=== PATIENT | female | born 1935 | race Caucasian/White ===

== ENCOUNTER 2016-05-23 13:22 | Emergency (ER) | payer MEDICARE, BC ==
--- NOTE | ~2016-05-23 | EKG ---
PATIENT: GUILLERMO LIMON UNIT #: [id number] Ventricular Rate: 61 BPM Atrial Rate: 61 BPM P-R Interval: 168 ms QRS Duration: 106 ms Q-T Interval: 508 ms QTC Calculation(Bezet): 511 ms P [place]: 11 degrees Calculated R [place]: -48 degrees Calculated T [place]: -10 degrees Diagnosis Line: Normal sinus rhythm Diagnosis Line: Left anterior fascicular block Diagnosis Line: Voltage criteria for left ventricular hypertrophy Diagnosis Line: Nonspecific ST and T wave abnormality Diagnosis Line: Prolonged QT Diagnosis Line: Abnormal ECG Diagnosis Line: When compared with ECG of 19-APR-2016 05:47, Diagnosis Line: Non-specific change in ST segment in Inferior Diagnosis Line: leads Diagnosis Line: T wave inversion now evident in Inferior leads Diagnosis Line: Confirmed by DEVANG BELLO MD ([id number]) on 05/24/2016 Diagnosis Line: 5:41:49 PM INTERPRETING MD: EUGENIA LANCE
--- NOTE | ~2016-05-23 | CR72 ---
[facility] A Service of [facility] RADIOLOGY TEXT RESULTS PATIENT: GUILLERMO LIMON LOCATION: [facility] : 33 UNIT #: [id number] AGE: [address]: Han Ramos MD SEX: F ORDER DR: [id number] [facility] [address] [place], [place] [address] [id number] MR#: [id number] Acc #: [id number] NAME: GUILLERMO LIMON : 1935 SEX: F STUDY DATE/TIME: 05/23/2016 14:01 UNIT: [facility] ROOM: STUDY DESCRIPTION: CR Chest Single View Portable Attending Physician: Han Ramos M.D. Ordering Physician: Han Ramos M.D. Primary Care Physician: Phil Guerrero M.D. MEDICAL IMAGING REPORT This report is preliminary unless electronic signature is present EXAM Portable chest. DATE OF EXAM 05/23/2016 INDICATIONS Weakness, shortness of air starting today, 05/23/2016. COMPARISON 04/23/2016 FINDINGS A portable view of the chest was obtained. There are low lung volumes and there appears to be right lower lobe atelectasis with band-like fibrosis or atelectasis in the right mid-lung. The left lung is clear. IMPRESSION Appearance of the chest is similar to the study from April with some right lower lobe atelectasis and band-like fibrosis or atelectasis in the right mid lung. The left lung is clear. Dictated by... Kimo Lawson M.D. THIS IS AN ELECTRONICALLY VERIFIED REPORT Kimo Lawson M.D. at 05/24/2016 6:04 AM ADRIAN/sandeep TD: 05/23/2016 17:30 JOB #: [id number] [facility] A Service of [facility] RADIOLOGY TEXT RESULTS PATIENT: GUILLERMO LIMON LOCATION: [facility] : 31 UNIT #: [id number] AGE: [address]: Han Ramos MD SEX: F ORDER DR: MEDICAL IMAGING REPORT COPY
--- NOTE | ~2016-05-23 | CT71 ---
[facility] A Service of [facility] RADIOLOGY TEXT RESULTS PATIENT: GUILLERMO LIMON LOCATION: [facility] : 33 UNIT #: [id number] AGE: [address]: Han Ramos MD SEX: F ORDER DR: [id number] [facility] [address] [place], [place] [address] [id number] MR#: [id number] Acc #: [id number] NAME: GUILLERMO LIMON. : 1935 SEX: F STUDY DATE/TIME: 05/23/2016 14:17 UNIT: [facility] ROOM: STUDY DESCRIPTION: CT Head Wo Contrast Attending Physician: Han Ramos M.D. Ordering Physician: Han Ramos M.D. Primary Care Physician: Phil Guerrero M.D. MEDICAL IMAGING REPORT This report is preliminary unless electronic signature is present EXAM CT head, noncontrast, 05/23/2016 HISTORY 81-year-old female in the ED complaining of 4-day history of generalized weakness and lethargy. TECHNIQUE CT examination of the head was performed without IV contrast. The CT exam was performed with one or more of the following radiation dose reduction techniques: automatic exposure control, adjustment of mA and/or kV according to patient size, and iterative reconstruction. FINDINGS No acute intracranial abnormality is demonstrated. Mild generalized cerebral cortical atrophy with slightly disproportionate enlargement of the ventricles. Advanced diffuse low-attenuation white matter changes, nonspecific but likely related to chronic small vessel disease. These changes are stable since the previous study of 04/19/2016. No evidence of intracranial hemorrhage, mass, mass effect, cerebral edema or progressive ventricular enlargement. Fluid levels in both maxillary sinuses. Metallic foreign body in the right orbit adjacent to the globe may be postoperative. IMPRESSION 1. No acute intracranial abnormality is demonstrated. 2. Stable diffuse chronic changes as detailed above. [facility] A Service of [facility] RADIOLOGY TEXT RESULTS PATIENT: GUILLERMO LIMON LOCATION: [facility] : 33 UNIT #: [id number] AGE: [address]: Han Ramos MD SEX: F ORDER DR: 3. Fluid within both maxillary sinuses may indicate acute sinusitis. 4. No change since 04/19/2016. Dictated by... Jeremias Hampton M.D. THIS IS AN ELECTRONICALLY VERIFIED REPORT Jeremias Hampton M.D. at 06/02/2016 6:02 AM MARILYN/derick TD: 05/23/2016 15:10 JOB #: [id number] MEDICAL IMAGING REPORT COPY
[~2016-05-23 13:22] MED LIST: ACETAMINOPHEN PO; ACID RELIEF200 MG PO; AEROECLIPSE II1 EACH; ALBUTEROL MININEB NEB; ALPRAZOLAM PO; ALPRAZOLAM0.25 MG PO; ALTACE10 M1 PO; AMLODIPINE BESYL5 MG PO; ATARAX PO; AZOR 5-20 MG T1 EACH PO; BENADRYL25 M1 PO; BENADRYL25 MG PO; BENTYL10 MG PO; CALCIUM + D 6001 TA1 PO; CARDIZEM CD120 M1 PO; CARDIZEM60 M1 PO; CORDARONE200 M1 PO; COUMADIN10 MG PO; COUMADIN5 MG PO; COUMADIN7.5 MG PO; DEMADEX PO; DEMADEX10 MG PO; DICYCLOMINE HCL10 MG PO; DILTIAZEM 24HR120 MG PO; DIOVAN HCT 160/1 TAB PO; FENOFIBRATE160 MG PO; FERRO-TIME325 MG PO; FERROUS SULFATE PO; HYDRALAZINE HCL25 MG PO; LEVAQUIN PO; LEVOTHROID50 MCG PO; LEVOTHYROXINE50 MCG PO; LIPITOR40 MG PO; LOVASTATIN20 MG PO; NORVASC10 MG PO; OXYCODONE HCL5 M1 PO; OXYGEN; PACERONE100 MG PO; PREDNISONE PO; PRILOSEC PO; PROTONIX PO; SYMBICORT INH; SYNTHROID0.05 MG PO; ULORIC40 MG PO; WARFARIN SODIU2.5 MG PO; WARFARIN SODIU7.5 M1 PO; ZYLOPRIM100 MG PO; ZYRTEC PO; ZYRTEC10 M1 PO; ZYRTEC10 M2 PO
[2016-05-23 14:02] LABS: ARTERIAL BLD GAS O2 SATURATION 97.8 % (90.0-100.0); ARTERIAL BLOOD GAS CARBOXY HB 0.9 %sat (0.0-9.0); ARTERIAL BLOOD GAS MET HB 1.1 %sat (0.0-2.0); ARTERIAL BLOOD GAS PCO2 44.5 mmHg (35.0-45.0); ARTERIAL BLOOD GAS pH 7.423 (7.350-7.450)
[2016-05-23 14:03] LABS: ARTERIAL BLOOD GAS ALLEN TEST NORMAL; ARTERIAL BLOOD GAS ART SITE RIGHT RADIAL; ARTERIAL BLOOD GAS DELIVERY NASAL CANNULA; ARTERIAL DRAW? YES
[2016-05-23 14:13] LABS: POC - CKMB 4.7 ng/mL (0.0-7.9); POC - TROPONIN <0.05 ng/mL (<=0.05)
[2016-05-23 14:16] LABS: BASOPHIL# 0.1 X10e3 (0-0.3); BASOPHIL% 1.2 % (0-2.5); EOSINOPHIL% 0.2 % (0.0-7.0); HEMATOCRIT 29.4 % (35.0-45.0); LYMPHOCYTE# 0.9 X10e3 (1.0-3.5); MEAN CELL VOLUME 82.4 FL (83-96); MEAN CORPUSCULAR HEMOGLOBIN 28.1 PG (28-34); MEAN CORPUSCULAR HGB CONC 34.2 g/dL (30-36); MONOCYTE# 0.8 X10e3 (0-1.0); MONOCYTE% 10.9 % (3.0-12.0); NEUTROPHIL# 5.6 X10e3 (1.5-7.1); NEUTROPHIL% 75.7 % (40-75); PLATELET COUNT 497 X10e3 (140-420); RED BLOOD COUNT 3.57 X10e (3.90-5.30); RED CELL DISTRIBUTION WIDTH 21.9 % (11.0-15.5); WHITE BLOOD COUNT 7.4 X10e3 (4.0-10.5)
[2016-05-23 14:17] LABS: DIFF IND NO
[2016-05-23 14:21] LABS: INR 2.9; PROTHROMBIN TIME (PATIENT) 32.2 SECONDS (9.6-11.5)
[2016-05-23 14:23] LABS: URINE SOURCE CATH
[2016-05-23 14:28] LABS: URINE APPEARANCE CLOUDY; URINE BILIRUBIN NEG (NEG); URINE BLOOD 1+ (NEG); URINE COLOR YELLOW; URINE GLUCOSE NEG (NEG); URINE KETONE NEG (NEG); URINE LEUKOCYTE ESTERASE 1+ (NEG); URINE NITRATE NEG (NEG); URINE PH 6.5 (5-8); URINE PROTEIN TRACE (NEG); URINE SPECIFIC GRAVITY 1.013 (1.003-1.035)
[2016-05-23 14:30] LABS: CULTURE INDICATED? YES; URINE BACTERIA AUWI 4+ (NEGATIVE); URINE SQUAMOUS EPITHELIAL CELL NONE SEEN /[HPF]; UWBCS1 AUWI 50-100 (0-5)
[2016-05-23 14:33] LABS: ALBUMIN SERUM 2.8 g/dL (3.5-5.0); ALKALINE PHOSPHATASE 56 U/L (32-92); ALT (SGPT) 6 U/L (10-40); AST (SGOT) 25 U/L (10-42); BILIRUBIN, DIRECT 0.2 mg/dL (0.0-0.2); BLOOD UREA NITROGEN 12 mg/dL (9-23); CALCIUM SERUM 8.8 mg/dL (8.4-10.2); CARBON DIOXIDE 28 mmol/L (22-31); CHLORIDE 98 mmol/L (100-111); CREATININE SERUM 0.6 mg/dL (0.6-1.4); GLOM FILT RATE Estimated ABOVE60 mL/min (>60); GLUCOSE FASTING 82 mg/dL (70-110); POTASSIUM 3.5 mmol/L (3.5-5.1); PROTEIN TOTAL SERUM 6.2 g/dL (6.0-8.3); SODIUM 134 mmol/L (135-145)
[2016-05-23 14:50] LABS: BILIRUBIN,TOTAL 1.2 mg/dL (0.2-2.0)
== END 2016-05-23 17:30 ==
LOC: CED 13:22
PROVIDERS: Emergency Medicine
DX: N39.0 Urinary tract infection, site not specified (principal); J44.9 Chronic obstructive pulmonary disease, unspecified; I48.91 Unspecified atrial fibrillation; I10 Essential (primary) hypertension; Z88.0 Allergy status to penicillin; Z79.899 Other long term (current) drug therapy
CPT/HCPCS: 36415; 36600; 70450; 71010; 80048; 80076; 81003; 82553; 82803; 82947; 83605; 84484; 85025; 85610; 87086; 87088; 87186; 93005; 96365; 99284; J0696